=== PATIENT | male | born 1945 | race Two or more races ===

== ENCOUNTER 2019-01-17 07:48 | Inpatient (IN) | payer MEDICARE, BC ==
[~2019-01-17] VITALS: Ht 177.8 cm; Wt 84.8 kg
[2019-01-17 08:09] LABS: BASOPHILS % 0.6 % (0.0-2.0); EOSINOPHILS % 0.9 % (0.0-5.0); HEMATOCRIT. 27.3 % (42.0-52.0); LYMPHOCYTES % 17.2 % (20.0-50.0); MEAN CORPUSCULAR HEMOGLOBIN 26.9 pg (28.0-32.0); MEAN CORPUSCULAR VOLUME 81.7 fL (80.0-94.0); MEAN PLATELET VOLUME 8.7 fl (7.4-10.4); MONOCYTES % 7.7 % (2.0-8.0); NEUTROPHILS % 73.6 % (40.0-76.0); PLATELET 264 x1000/uL (130-400); RED BLOOD CELL COUNT 3.34 mill/uL (4.7-6.1); RED CELL DISTRIBUTION WIDTH 16.6 % (11.6-14.6)
[2019-01-17 08:18] LABS: CHLORIDE 107 mEq/L (98-107); PROTHROMBIN TIME 10.3 sec (9.6-11.0)
[2019-01-17 08:25] LABS: ETHANOL BLOOD < 10 mg/dL
[2019-01-17 08:27] LABS: LDL CHOLESTEROL 73 mg/dL (5-100)
[2019-01-17 08:28] LABS: CREATINE KINASE 93 IU/L (39-308)
[2019-01-17] MEDS ORDERED: ASPIRIN 325MG TABLET PO ONE (09:30)
[2019-01-17] MEDS ORDERED: CLONIDINE 0.1MG TABLET PO PRN (10:15)
[2019-01-17] MEDS ORDERED: ONDANSETRON HCL 4MG/2ML INJ IV PRN (10:15)
[2019-01-17] MEDS ORDERED: GUAIFENESIN 200MG/10ML SUGAR FREE UDC PO PRN (10:15)
[2019-01-17] MEDS ORDERED: HYDROCODONE/ACETAMINOPHEN 5/325MG TABLET PO PRN (10:15)
[2019-01-17] MEDS ORDERED: LORAZEPAM 2MG/ML CPJ IV PRN (10:15)
[2019-01-17] MEDS ORDERED: MAGNESIUM/ALUMINUM HYDROXIDE/SIMETHICONE 30ML UDC PO PRN (10:15)
[2019-01-17] MEDS ORDERED: DIPHENHYDRAMINE 50MG/ML VIAL IV PRN (10:15)
[2019-01-17] MEDS ORDERED: ACETAMINOPHEN 325MG TABLET PO PRN (10:15)
[2019-01-17] MEDS ORDERED: DOCUSATE SODIUM 100MG CAPSULE PO PRN (10:15)
[2019-01-17] MEDS ORDERED: NA PHOS,M-B/NA PHOS,DI-BA ENEMA 118ML PR PRN (10:15)
[2019-01-17] MEDS ORDERED: IPRATROPIUM/ALBUTEROL 0.5-3(2.5)MG/3ML NEB NEB PRN (10:15)
[2019-01-17] MEDS ORDERED: MORPHINE SULFATE 2 MG/ML CPJ (NOT FOR IM USE) IV PRN (10:15)
[2019-01-17 10:34] LABS: BG BASE EXCESS 0.1 mmol/L (-2.0-2.0); BG CARBOXYHEMOGLOBIN 0.1 % (0.5-1.5); BG DEOXYHEMOGLOBIN 0.8 % (0.0-5.0); BG HCO3 ACT 25.4 mmol/L (22.0-26.0); BG METHEMOGLOBIN 0.1 % (0.0-1.5); BG OXYGEN SATURATION 99.2 % (92.0-98.5); BG PCO2 44.3 mmHg (35.0-45.0); BG PH 7.377 (7.350-7.450); BG PO2 190.3 mmHg (75.0-100.0); BG SAMPLE SITE RIGHT RADIAL; BG TOTAL HEMOGLOBIN 10.8 g/dL (12.0-18.0); BG VENT MODE NASAL CANNULA
[2019-01-17 10:59] LABS: CLARITY URINE TURBID (CLEAR); COLOR URINE YELLOW (YELLOW); KETONES URINE NEGATIVE (NEGATIVE); LEUKOCYTE ESTERASE URINE 3+ (NEGATIVE); NITRITE URINE NEGATIVE (NEGATIVE); OCCULT BLOOD URINE 1+ (NEGATIVE); PROTEIN URINE 2+ (NEGATIVE); SPECIFIC GRAVITY URINE 1.023 (1.005-1.030); UROBILINOGEN URINE 0.2 E.U./dL (0.2-1.0)
[2019-01-17] MEDS ORDERED: IOHEXOL-350 100 ML BOTTLE ONE (11:50)
[2019-01-17 11:52] LABS: *BARBITURATES SCREEN URINE NEGATIVE (NEGATIVE)
[2019-01-17 11:53] LABS: *AMPHETAMINES SCREEN URINE NEGATIVE (NEGATIVE); PHENCYCLIDINE URINE SCREEN NEGATIVE (NEGATIVE)
[2019-01-17 11:54] LABS: *BENZODIAZEPINES SCREEN URINE NEGATIVE (NEGATIVE); *COCAINE SCREEN URINE NEGATIVE (NEGATIVE); METHADONE URINE SCREEN NEGATIVE (NEGATIVE); OPIATES URINE SCREEN NEGATIVE (NEGATIVE)
[2019-01-17 11:56] LABS: CANNABINOID URINE SCREEN NEGATIVE (NEGATIVE)
[2019-01-17] MEDS ORDERED: CEFTRIAXONE 1 G PREMIX 50 ML IV ONE (12:00)
[2019-01-17 14:58] VITALS: BP 108/61
[2019-01-17] MEDS ORDERED: SERT50TA MT (15:25)
[2019-01-17] MEDS ORDERED: ASPI-986 PO (15:25)
[2019-01-17] MEDS ORDERED: ROSU40TA MT (15:32)
[2019-01-17] MEDS ORDERED: CARB-32 MT (15:32)
[2019-01-17] MEDS ORDERED: RANO10003 MT (15:32)
[2019-01-17] MEDS ORDERED: MIDO5TAB MT (15:32)
[2019-01-17] MEDS ORDERED: CARB-121 MT (15:32)
[2019-01-17] MEDS ORDERED: POLY17PO3 MT (15:32)
[2019-01-17] MEDS ORDERED: ONDA4TAB11 PO (15:32)
[2019-01-17] MEDS ORDERED: BUPR-43 MT (15:32)
[2019-01-17] MEDS ORDERED: ESZO3TAB24 MT (15:32)
[2019-01-17] MEDS ORDERED: PREN-99 MT (15:32)
[2019-01-17] MEDS ORDERED: INSU300I SQ (15:34)
[2019-01-17] MEDS ORDERED: INSLIS SUBCUT (15:34)
[2019-01-17 16:00] VITALS: BP 112/53
[2019-01-17] MEDS: SODIUM CHLORIDE 0.45% 1,000 ML IV SCH (16:47)
[2019-01-17] MEDS: ENOXAPARIN 40MG/0.4ML SYR SUBCUT SCH (16:47)
[2019-01-17 20:00] VITALS: BP 134/73
[2019-01-17] MEDS ORDERED: DEXTROSE 50% WATER 50ML SYRINGE IV PRN (20:15)
[2019-01-17] MEDS: BLOOD SUGAR DIAGNOSTIC STRIP TEST SCH (20:49)
[2019-01-17] MEDS: AMLODIPINE 5MG TABLET PO SCH (20:49)
[2019-01-17] MEDS: INSULIN LISPRO 100 UNITS/ML SUBCUT SCH (20:50)
[2019-01-18] VITALS: BP 116/64
[2019-01-18 04:00] VITALS: BP 140/70
[2019-01-18] MEDS: BLOOD SUGAR DIAGNOSTIC STRIP TEST SCH ×3 (07:40→21:00)
[2019-01-18 08:00] VITALS: BP 125/65
[2019-01-18] MEDS: INSULIN LISPRO 100 UNITS/ML SUBCUT SCH ×3 (08:10→19:40)
[2019-01-18] MEDS: ASPIRIN 81MG EC TABLET PO SCH (09:49)
[2019-01-18] MEDS: AMLODIPINE 5MG TABLET PO SCH ×2 (09:56→21:00)
[2019-01-18 10:13] LABS: BASOPHILS % 0.7 % (0.0-2.0); HEMATOCRIT. 28.5 % (42.0-52.0); HEMOGLOBIN. 9.3 g/dL (14.0-18.0); LYMPHOCYTES % 24.9 % (20.0-50.0); MEAN CORPUSCULAR HEMOGLOBIN 26.7 pg (28.0-32.0); MEAN CORPUSCULAR VOLUME 82.2 fL (80.0-94.0); MEAN PLATELET VOLUME 8.9 fl (7.4-10.4); MONOCYTES % 8.2 % (2.0-8.0); NEUTROPHILS % 65.2 % (40.0-76.0); PLATELET 261 x1000/uL (130-400); RED BLOOD CELL COUNT 3.47 mill/uL (4.7-6.1); RED CELL DISTRIBUTION WIDTH 17.1 % (11.6-14.6)
[2019-01-18 10:27] LABS: CHLORIDE 107 mEq/L (98-107)
[2019-01-18 10:37] LABS: LDL CHOLESTEROL 86 mg/dL (5-100)
[2019-01-18 10:38] LABS: HDL CHOLESTEROL 30 mg/dL (40-59); T4 FREE 1.03 ng/dL (0.76-1.46)
[2019-01-18] MEDS: SODIUM CHLORIDE 0.45% 1,000 ML IV SCH (10:45)
[2019-01-18 12:00] VITALS: BP 125/65
[2019-01-18] MEDS: ENOXAPARIN 40MG/0.4ML SYR SUBCUT SCH (15:15)
[2019-01-18 16:00] VITALS: BP 116/59
[2019-01-18 20:00] VITALS: BP 130/68
[2019-01-19] VITALS: BP 113/62
[2019-01-19] MEDS: INSULIN LISPRO 100 UNITS/ML SUBCUT SCH ×5 (00:10→21:11)
[2019-01-19 04:00] VITALS: BP 119/65
[2019-01-19 07:38] LABS: BASOPHILS % 0.4 % (0.0-2.0); EOSINOPHILS % 1.3 % (0.0-5.0); HEMATOCRIT. 28.3 % (42.0-52.0); HEMOGLOBIN. 9.2 g/dL (14.0-18.0); MEAN CORPUSCULAR HEMOGLOBIN 26.7 pg (28.0-32.0); MEAN PLATELET VOLUME 9.2 fl (7.4-10.4); NEUTROPHILS % 57.3 % (40.0-76.0); PLATELET 243 x1000/uL (130-400); RED BLOOD CELL COUNT 3.45 mill/uL (4.7-6.1); RED CELL DISTRIBUTION WIDTH 16.7 % (11.6-14.6)
[2019-01-19] MEDS: BLOOD SUGAR DIAGNOSTIC STRIP TEST SCH ×4 (07:40→21:08)
[2019-01-19 08:00] VITALS: BP 141/76
[2019-01-19] MEDS: ASPIRIN 81MG EC TABLET PO SCH (08:48)
[2019-01-19] MEDS: AMLODIPINE 5MG TABLET PO SCH ×2 (08:57→21:09)
[2019-01-19 12:00] VITALS: BP 138/69
[2019-01-19 16:00] VITALS: BP 112/57
[2019-01-19] MEDS: ENOXAPARIN 40MG/0.4ML SYR SUBCUT SCH (17:27)
[2019-01-19] MEDS: LEVOFLOXACIN 250MG TABLET PO SCH (17:45)
[2019-01-19 18:54] LABS: PHOSPHORUS 2.6 mg/dL (2.5-4.9)
[2019-01-19 20:36] VITALS: BP 132/68
[2019-01-20 00:32] VITALS: BP 136/75
[2019-01-20 04:00] VITALS: BP 124/63
[2019-01-20] MEDS: BLOOD SUGAR DIAGNOSTIC STRIP TEST SCH ×4 (07:30→21:29)
[2019-01-20 08:00] VITALS: BP 140/66
[2019-01-20] MEDS: ASPIRIN 81MG EC TABLET PO SCH (09:27)
[2019-01-20] MEDS: AMLODIPINE 5MG TABLET PO SCH ×2 (09:27→21:28)
[2019-01-20] MEDS: INSULIN LISPRO 100 UNITS/ML SUBCUT SCH ×4 (09:29→21:29)
[2019-01-20 12:17] VITALS: BP 115/69
[2019-01-20] MEDS: LEVOFLOXACIN 250MG TABLET PO SCH (12:20)
[2019-01-20] MEDS: ENOXAPARIN 40MG/0.4ML SYR SUBCUT SCH (15:55)
[2019-01-20 16:00] VITALS: BP 124/78
[2019-01-20 17:51] LABS: CHLORIDE 106 mEq/L (98-107)
[2019-01-20 20:00] VITALS: BP 112/64
[2019-01-21] VITALS: BP 132/73
[2019-01-21 04:00] VITALS: BP 160/83
[2019-01-21] MEDS: SODIUM CHLORIDE 0.45% 1,000 ML IV SCH ×3 (04:30→17:59)
[2019-01-21 07:29] LABS: BASOPHILS % 0.5 % (0.0-2.0); HEMATOCRIT. 28.9 % (42.0-52.0); HEMOGLOBIN. 9.5 g/dL (14.0-18.0); MEAN CORPUSCULAR HEMOGLOBIN 27.1 pg (28.0-32.0); MEAN CORPUSCULAR VOLUME 82.2 fL (80.0-94.0); MEAN PLATELET VOLUME 9.3 fl (7.4-10.4); MONOCYTES % 9.6 % (2.0-8.0); NEUTROPHILS % 57.9 % (40.0-76.0); PLATELET 235 x1000/uL (130-400); RED BLOOD CELL COUNT 3.52 mill/uL (4.7-6.1); RED CELL DISTRIBUTION WIDTH 16.9 % (11.6-14.6)
[2019-01-21] MEDS: BLOOD SUGAR DIAGNOSTIC STRIP TEST SCH ×4 (07:40→20:56)
[2019-01-21 08:11] VITALS: BP 123/64
[2019-01-21] MEDS: AMLODIPINE 5MG TABLET PO SCH ×2 (09:05→20:55)
[2019-01-21] MEDS: ASPIRIN 81MG EC TABLET PO SCH (09:05)
[2019-01-21] MEDS: INSULIN LISPRO 100 UNITS/ML SUBCUT SCH ×4 (09:06→20:56)
[2019-01-21] MEDS: LEVOFLOXACIN 250MG TABLET PO SCH (10:33)
[2019-01-21 11:44] VITALS: BP 100/57
[2019-01-21] MEDS: ENOXAPARIN 40MG/0.4ML SYR SUBCUT SCH (15:36)
[2019-01-21 16:14] VITALS: BP 119/67
[2019-01-21 20:00] VITALS: BP 122/63
[2019-01-22] VITALS: BP_SYST 13; BP_SYST 130; BP_DIAS 68
[2019-01-22 04:00] VITALS: BP 119/66
[2019-01-22] MEDS: BLOOD SUGAR DIAGNOSTIC STRIP TEST SCH ×4 (07:40→20:51)
[2019-01-22 07:50] VITALS: BP 103/61
[2019-01-22 07:59] LABS: BASOPHILS % 0.5 % (0.0-2.0); EOSINOPHILS % 1.4 % (0.0-5.0); HEMATOCRIT. 33.2 % (42.0-52.0); HEMOGLOBIN. 10.8 g/dL (14.0-18.0); MEAN CORPUSCULAR HEMOGLOBIN 27.1 pg (28.0-32.0); MEAN CORPUSCULAR VOLUME 82.7 fL (80.0-94.0); MEAN PLATELET VOLUME 9.2 fl (7.4-10.4); MONOCYTES % 8.8 % (2.0-8.0); NEUTROPHILS % 58.3 % (40.0-76.0); PLATELET 225 x1000/uL (130-400); RED BLOOD CELL COUNT 4.01 mill/uL (4.7-6.1); RED CELL DISTRIBUTION WIDTH 16.8 % (11.6-14.6)
[2019-01-22] MEDS: ASPIRIN 81MG EC TABLET PO SCH (09:00)
[2019-01-22] MEDS: AMLODIPINE 5MG TABLET PO SCH ×2 (09:00→20:51)
[2019-01-22] MEDS: INSULIN LISPRO 100 UNITS/ML SUBCUT SCH ×4 (09:47→20:51)
[2019-01-22] MEDS: LEVOFLOXACIN 250MG TABLET PO SCH (11:35)
[2019-01-22 11:42] VITALS: BP 92/59
[2019-01-22] MEDS: SODIUM CHLORIDE 0.45% 1,000 ML IV SCH (14:00)
[2019-01-22] MEDS: ENOXAPARIN 40MG/0.4ML SYR SUBCUT SCH (15:00)
[2019-01-22 16:06] VITALS: BP 112/62
[2019-01-22] MEDS ORDERED: ZOLPIDEM TARTRATE 5MG TABLET PO PRN (20:00)
[2019-01-22 20:38] VITALS: BP 120/69
[2019-01-23] VITALS: BP 103/66
[2019-01-23 04:00] VITALS: BP 121/69
[2019-01-23] MEDS: BLOOD SUGAR DIAGNOSTIC STRIP TEST SCH ×2 (07:40→12:40)
[2019-01-23 08:00] VITALS: BP 113/71
[2019-01-23] MEDS: ASPIRIN 81MG EC TABLET PO SCH (09:29)
[2019-01-23] MEDS: AMLODIPINE 5MG TABLET PO SCH (09:30)
[2019-01-23] MEDS: SODIUM CHLORIDE 0.45% 1,000 ML IV SCH (09:30)
[2019-01-23] MEDS: INSULIN LISPRO 100 UNITS/ML SUBCUT SCH ×2 (09:32→14:47)
[2019-01-23] MEDS ORDERED: LOSARTAN POTASSIUM 50 MG TABLET PO NR (09:45)
[2019-01-23] MEDS: LEVOFLOXACIN 250MG TABLET PO SCH (10:55)
[2019-01-23 12:00] VITALS: BP 130/79
[2019-01-23 16:00] VITALS: BP 109/66
== END 2019-01-23 17:50 | disposition home or self-care (01) | DRG 91 ==
LOC: ER 07:48 → 7WST 09:55 → EDBEDREQ 09:57 → EDBEDREQSVC 09:57 → EDBEDREQTM 09:57 → ENRESERV 12:15
PROVIDERS: ADMIT Internal Medicine; ATTEND Internal Medicine
PROC: 4A00X4Z Measurement of Central Nervous Electrical Activity, External Approach (ICD-10-PCS; principal; 2019-01-20)
DX: G92 Toxic encephalopathy (principal); N17.0 Acute kidney failure with tubular necrosis; G82.50 Quadriplegia, unspecified; I50.41 Acute combined systolic (congestive) and diastolic (congestive) heart failure; N39.0 Urinary tract infection, site not specified; I13.0 Hypertensive heart and chronic kidney disease with heart failure and stage 1 through stage 4 chronic kidney disease, or unspecified chronic kidney disease; D64.9 Anemia, unspecified; E78.5 Hyperlipidemia, unspecified; E86.0 Dehydration; G20 Parkinson's disease; I25.10 Atherosclerotic heart disease of native coronary artery without angina pectoris; Z95.5 Presence of coronary angioplasty implant and graft; B96.5 Pseudomonas (aeruginosa) (mallei) (pseudomallei) as the cause of diseases classified elsewhere; E11.22 Type 2 diabetes mellitus with diabetic chronic kidney disease; K59.00 Constipation, unspecified; N18.3 Chronic kidney disease, stage 3 (moderate); K21.9 Gastro-esophageal reflux disease without esophagitis; R26.9 Unspecified abnormalities of gait and mobility; B96.89 Other specified bacterial agents as the cause of diseases classified elsewhere; Z79.4 Long term (current) use of insulin; Z82.49 Family history of ischemic heart disease and other diseases of the circulatory system; Z91.14 Patient's other noncompliance with medication regimen
CPT/HCPCS: 36415; 36600; 70496; 70498; 70551; 71045; 76770; 80048; 80061; 80305; 80320; 81003; 82140; 82375; 82550; 82805; 82962; 83036; 83721; 83735; 83880; 83970; 84100; 84439; 84443; 84484; 87077; 87186; 92523; 92610; 93005; 93306; 97162; 99285; J0696; J1650; J1815; J2060; J2405; Q9967; G0480